=== PATIENT | female | born 1940 | race Caucasian/White ===

== ENCOUNTER → 2016-11-04 | Outpatient (CLI) | payer OTHER, MEDICARE ==
--- NOTE | 2016-11-04 16:15 | MAMMOGRAPHY REPORT ---
UNILATERAL RIGHT DIGITAL SCREENING MAMMOGRAM TOMOSYNTHESIS WITH CAD: 11/04/2016 CLINICAL HISTORY: Asymptomatic. Personal history of breast cancer. TECHNIQUE: Right breast tomosynthesis in addition to standard 2D mammography was performed. Current study was also evaluated with a Computer Aided Detection (CAD) system. COMPARISON: Comparison is made to exams dated: 12/03/2015 mammogram, 11/12/2015 mammogram, 11/04/2015 ma mmogram, 10/29/2014 mammogram, 10/24/2013 mammogram, and 10/23/2012 mammogram - [facility]. BREAST COMPOSITION: There are scattered areas of fibroglandular density in the right breast. FINDINGS: There are mild vascular calcifications in the right breast. No new suspicious mass, joe ectural distortion or cluster of microcalcifications is seen. IMPRESSION: ACR BI-RADS CATEGORY 1: NEGATIVE There is no mammographic evidence of malignancy. A 1 year screening mammogram is recommended. The pa tient will receive written notification of the results. Approximately 10% of breast cancers are not detected with mammography. A negative mammographic report should not delay biopsy if a clinically suggestive mass is present. Barb Powers M.D. ay/:11/04/2016 15:55:09 Pony Trimmer: Lucero ROBLEDO(Kwaku)(Polina)([place]), [facility] letter sent: Normal 1/2 BI-RADS Code: ACR BI-RADS Category 1: Negative
== END | disposition home or self-care (01) ==
LOC: C.MAMM 09:54
PROVIDERS: ATTEND Family Medicine
DX: Z12.31 Encounter for screening mammogram for malignant neoplasm of breast (principal); Z85.3 Personal history of malignant neoplasm of breast

== ENCOUNTER 2018-11-01 13:03 | Observation (INO) ==
--- NOTE | 2018-11-01 13:33 | XRay Report ---
XR chest 1V portable CLINICAL HISTORY: chest pain pain COMPARISON STUDY: No previous studies for comparison. FINDINGS: The bones soft tissues and hemidiaphragms are normal. The cardiomediastinal silhouette is n ormal. The lungs are clear. The pulmonary vasculature is normal. IMPRESSION: Negative chest. The above report was generated using voice recognition software. It may contain grammatical, syntax or spelling errors. Electronically signed by: Anatoliy Macias M.D. 11/01/2018 1:32 PM
[2018-11-01 13:54] LABS: Basophils # (auto) 0.02 K/uL (0-0.2); Basophils % (auto) 0.2 %; Eosinophils # (auto) 0.03 K/uL (0-0.5); Eosinophils % (auto) 0.4 %; Hematocrit (blood only) 39.7 % (37-47); Hemoglobin 13.7 g/dL (12.0-16.0); Immature Granulocytes # (auto) 0.01 K/uL (0.00-0.02); Immature Granulocytes % (auto) 0.1 %; Lymphocytes # (auto) 0.73 K/uL (1.2-3.4); Lymphocytes % (auto) 8.7 %; Mean Corpuscular Hgb Conc 34.5 g/dL (32-36); Mean Corpuscular Volume 94.3 fL (80-100); Mean Platelet Volume 10.7 fL (7.4-10.4); Monocytes # (auto) 0.39 K/uL (0.11-0.59); Monocytes % (auto) 4.7 %; Neutrophils % (auto) 85.9 %; Platelet Count 221 K/uL (130-400); RDW Coefficient of Variation 13.6 % (11.5-14.5); Red Blood Count 4.21 M/uL (4.2-5.4); White Blood Count 8.38 K/uL (4.8-10.8)
[2018-11-01 14:11] LABS: D Dimer 1000 ug/L FEU (0-500)
[2018-11-01 14:57] LABS: Alanine Aminotransferase 66 U/L (12-78); Albumin Globulin Ratio 0.9 (0.9-2); Albumin Level 3.2 gm/dl (3.4-5.0); Alkaline Phosphatase 105 U/L (45-117); BUN Creatinine Ratio 13.1 (10-20); Bilirubin,Total 0.4 mg/dl (0.2-1); Blood Urea Nitrogen 16 mg/dl (7-18); Calcium 8.9 mg/dl (8.5-10.1); Carbon Dioxide 24 mmol/L (21-32); Chloride 109 mmol/L (98-107); Creatinine Clr Calc Pharmacy 32.7 ml/min; Est GFR (Non-African American) 40.6; Globulin 3.6 gm/dl (2.5-4.0); Glucose 155 mg/dl (70-99); NT Pro B Type Natriuretic Pept 179 pg/ml (0-1800); Sodium 142 mmol/L (136-145); Total Protein 6.8 gm/dl (6.4-8.2); Troponin I < 0.015 ng/ml (0-0.045)
[2018-11-01] MEDS ORDERED: OPTIRAY 320 125ml IV PRN (15:49)
[2018-11-01] MEDS ORDERED: FAMOTIDINE 20MG/5ML IV PUSH IV STA (15:51)
[2018-11-01 16:05] LABS: Magnesium 2.4 mg/dl (1.8-2.4)
--- NOTE | 2018-11-01 16:09 | CT Scan Report ---
CHEST CTA for PULMONARY ARTERIES CT DOSE: 258.53 mGy.cm HISTORY: Atypical chest pain. TECHNIQUE: Multiaxial CT images of the chest were performed following the intravenous administration of contrast to evaluate the pulmonary arteries. Maximal intensity projection images were also obtaine d. A dose lowering technique was utilized adhering to the principles of ALARA. COMPARISON STUDY: None. FINDINGS: No evidence for an aortic dissection or pulmonary embolus. Normal esophagus. The visualized liver, spleen, and adrenal glands are unremarkable. No pleural or pericardial effusions. The heart i s normal in size. No mediastinal or hilar lymphadenopathy. Bilateral breast augmentation is noted. No suspicious lytic or last exam see the lesions. No pneumothorax. The central airways are patent. A 5 mm nodule within the left upper lobe on image 156. No focal lung consolidations to suggest pneumonia. IMPRESSION: 1. No evidence for pulmonary embolus. 2. A 5 mm nodule within the left upper lobe. Please refer to the chart below for recommended follow-u p. Please refer to below summary of Fleischner criteria recommendations for follow-up of incidental CT n odules (Ritesh Jack, Guidelines for management of small pulmonary nodules detected on CT scans: A sta tement from the Fleischner Society, Radiology 237: [phone].) SOLID NODULES Solitary nodule size: <6 mm * Low risk patients: no follow-up needed * high risk patients: optional CT at 12 months Solitary nodule size: 6-8 mm * Low risk patients: follow-up at 6-12 months, then consider further follow-up at 18-24 months * high risk patients: initial follow-up CT at 6-12 months and then at 18-24 months if no change Solitary nodule size: >8 mm * either low or high risk patients - consider follow-up CT at 3 months, and/or CT-PET, and/or biopsy Multiple nodules size: <6 mm * Low risk patients: no routine follow-up * high risk patients: optional CT at 12 months Multiple nodules size: 6-8 mm * Low risk patients: follow-up at 3-6 months, then consider further follow-up at 18-24 months * high risk patients: follow-up at 3-6 months, then at 18-24 months if no change Multiple nodules size: >8 mm * Low risk patients: follow-up at 3-6 months, then consider further follow-up at 18-24 months * high risk patients: follow-up at 3-6 months, then at 18-24 months if no change Note: newly detected indeterminate nodule in persons 35 years of age or older. * Low risk patients: minimal or absent history of smoking and/or other known risk factors * high risk patients: history of smoking or of other known risk factors (e.g. first degree relative with lung cancer, or exposure to asbestos, radon, uranium) * if a nodule up to 8 mm is partly solid or is ground glass further follow-up is required after 24 m onths to exclude possible slow growing adenocarcinoma (IRINEO) SUBSOLID NODULES Solitary pure ground-glass nodule * nodule size <6 mm - no CT follow-up required * nodule size >=6 mm - follow-up CT at 6-12 months, then every 2 years until 5 years Solitary part-solid nodule * nodule size <6 mm - no CT follow-up required * nodule size >=6 mm - follow-up CT at 3-6 months. If unchanged, and solid component remains <6 mm, then annual follow-up for 5 years Multiple subsolid nodules * nodule size <6 mm - follow-up CT at 3-6 months, consider further follow-up at 2 and 4 years if sta ble * nodule size >=6 mm - follow-up CT at 3-6 months, subsequent management based on the most suspiciou s nodule(s) Electronically signed by: Kodak Peralta M.D. 11/01/2018 4:08 PM
--- NOTE | 2018-11-01 17:47 | Emergency Department Note ---
Entered by Tamie Chong acting as a scribe for Candcie Viera DO History of Present Illness General Chief complaint: Chest Pain Time Seen by Provider: 11/01/18 13:05 Source: patient Mode of arrival: ambulatory Limitations: no limitations History of Present Illness Onset (ago): hour(s) (a few) Location: chest Radiation: non-radiation Pain Consistency: + now resolved Relieved By: + other (Aspirin and Nitroglycerin) Associated symptoms: + diaphoresis, + shortness of breath and + other (numbness in her hands and feet) Treatments prior to arrival: other (Aspirin and Nitroglycerin) The patient is an 78 year old female who presents to the ED complaining of now- resolved chest pain that began a few hours ago. She states that she experienced what she believed to be indigestion around 10:15 this morning when she was driving, and she sat down in her recliner once she got home. She notes that the symptoms were across her chest and in her upper abdomen. The patient complains of numbness in her hands and feet, diaphoresis, new chest pain, and SOB that occurred after she sat down. States this began to resolve by the time EMS arri rafi however she still had chest pain. She states that she received 1 nitroglycerin and 4 Aspirin SCARFER, and this resolved her symptoms. The patient denies any radiation to her back, arms, neck, and jaw. She notes a history of hypertension. The patient states that she does not smoke cigarettes, but she did for 3 years. No recent illness, no change in activity. No recent symptoms noted during any exertion. Patient states she does have indigestion intermittently, however this felt worse than what she is previously experienced. Home Medications Home Medications Medication Instructions Recorded Confirmed Type alfalfa 250 mg PO DAILY 11/01/18 11/01/18 History beta carotene 10,000 unit PO DAILY 11/01/18 11/01/18 History calcium carbonate [Calcium 500] 500 mg PO DAILY 11/01/18 11/01/18 History cholecalciferol (vitamin D3) 1,000 unit PO DAILY 11/01/18 11/01/18 History [Vitamin D3] lecithin 1,200 mg PO DAILY 11/01/18 11/01/18 History losartan 25 mg PO QAM 11/01/18 11/01/18 History pantoprazole 40 mg PO BID 30 Days #60 tab 11/02/18 Rx Allergies Allergy/AdvReac Type Severity Reaction Status Date / Time No Known Allergies Allergy Unverified 11/01/18 13:21 Past Med/Surg History Medical History Breast cancer (Chronic) GERD (gastroesophageal reflux disease) (Chronic) HTN (hypertension) (Chronic) Dyslipidemia (Chronic) Hypertension Surgical History History of cataract surgery (Chronic) Hx of tonsillectomy (Chronic) History of left mastectomy (Chronic) H/O mastectomy Family History Other Colorectal cancer Diabetes Hypertension Social History Preferred Language: Iraqi Communication Ability: Effective Beliefs That Will Affect Care: None Current Living Situation: Spouse Other Information That Helps Us Care for You: No Feels Safe at Home: Yes Safety Concerns: Feels Safe At This Time Smoking Status: Former smoker Smoking End Date: 50 years ago Second Hand Exposure: No Hx Alcohol Use: Yes Alcohol type: beer Hx Substance Use: No Review of Systems See HPI for pertinent positives & negatives. and A total of 10 systems reviewed and were otherwise negative Physical Exam Vital Signs Vital Signs - 24 hr 11/01/18 13:09 11/01/18 13:11 11/01/18 13:20 Temperature Temperature Source Sepsis Recent Fever Within 48 Hours Sepsis New/Unexplained Change in Mental Status Sepsis Action Taken by Nursing Pulse Rate 70 87 69 Pulse Rate [Apical] Pulse Rate [Exercises] Pulse Rate from SpO2 Sensor 78 74 65 Pulse Rhythm Pulse Rhythm [Apical] Pulse Strength Pulse Strength [Apical] Respiratory Rate 17 21 23 Respiratory Rate [Exercises] Respiratory Effort / Characteristics Respiratory Depth Respiratory Pattern Blood Pressure 147/79 H Blood Pressure [Right Arm] Blood Pressure Mean 101 Blood Pressure Mean [Right Arm] Blood Pressure Position Blood Pressure Position [Right Arm] Pulse Oximetry 95 94 98 Pulse Oximetry [Exercises] Oxygen Delivery Method 11/01/18 13:27 11/01/18 13:30 11/01/18 13:34 Temperature 97.9 F Temperature Source Oral Sepsis Recent Fever Within 48 Hours No Sepsis New/Unexplained Change in Mental Status No Sepsis Action Taken by Nursing No Action Required Pulse Rate 63 70 Pulse Rate [Apical] Pulse Rate [Exercises] Pulse Rate from SpO2 Sensor 69 Pulse Rhythm Regular Pulse Rhythm [Apical] Pulse Strength Normal Pulse Strength [Apical] Respiratory Rate 18 23 Respiratory Rate [Exercises] Respiratory Effort / Characteristics Non-Labored Spontaneous Respiratory Depth Normal Respiratory Pattern Regular Blood Pressure 147/79 H 151/90 H Blood Pressure [Right Arm] Blood Pressure Mean 101 110 Blood Pressure Mean [Right Arm] Blood Pressure Position Sitting Blood Pressure Position [Right Arm] Pulse Oximetry 97 92 97 Pulse Oximetry [Exercises] Oxygen Delivery Method Room Air Room Air 11/01/18 13:40 11/01/18 13:50 11/01/18 14:00 Temperature Temperature Source Sepsis Recent Fever Within 48 Hours Sepsis New/Unexplained Change in Mental Status Sepsis Action Taken by Nursing Pulse Rate 76 76 73 Pulse Rate [Apical] Pulse Rate [Exercises] Pulse Rate from SpO2 Sensor 79 Pulse Rhythm Pulse Rhythm [Apical] Pulse Strength Pulse Strength [Apical] Respiratory Rate 16 25 H 17 Respiratory Rate [Exercises] Respiratory Effort / Characteristics Respiratory Depth Respiratory Pattern Blood Pressure 147/92 H Blood Pressure [Right Arm] Blood Pressure Mean 110 Blood Pressure Mean [Right Arm] Blood Pressure Position Blood Pressure Position [Right Arm] Pulse Oximetry 94 Pulse Oximetry [Exercises] Oxygen Delivery Method 11/01/18 14:10 11/01/18 14:20 11/01/18 14:29 Temperature Temperature Source Sepsis Recent Fever Within 48 Hours Sepsis New/Unexplained Change in Mental Status Sepsis Action Taken by Nursing Pulse Rate 72 68 Pulse Rate [Apical] 80 Pulse Rate [Exercises] Pulse Rate from SpO2 Sensor Pulse Rhythm Pulse Rhythm [Apical] Regular Pulse Strength Pulse Strength [Apical] Normal Respiratory Rate 19 18 18 Respiratory Rate [Exercises] Respiratory Effort / Characteristics Non-Labored Respiratory Depth Normal Respiratory Pattern Regular Blood Pressure Blood Pressure [Right Arm] 147/92 H Blood Pressure Mean Blood Pressure Mean [Right Arm] 110 Blood Pressure Position Blood Pressure Position [Right Arm] Sitting Pulse Oximetry 96 Pulse Oximetry [Exercises] Oxygen Delivery Method Room Air 11/01/18 14:30 11/01/18 14:40 11/01/18 14:50 Temperature Temperature Source Sepsis Recent Fever Within 48 Hours Sepsis New/Unexplained Change in Mental Status Sepsis Action Taken by Nursing Pulse Rate 71 74 76 Pulse Rate [Apical] Pulse Rate [Exercises] Pulse Rate from SpO2 Sensor 72 75 71 Pulse Rhythm Pulse Rhythm [Apical] Pulse Strength Pulse Strength [Apical] Respiratory Rate 20 19 15 Respiratory Rate [Exercises] Respiratory Effort / Characteristics Respiratory Depth Respiratory Pattern Blood Pressure 160/91 H Blood Pressure [Right Arm] Blood Pressure Mean 114 Blood Pressure Mean [Right Arm] Blood Pressure Position Blood Pressure Position [Right Arm] Pulse Oximetry 94 95 96 Pulse Oximetry [Exercises] Oxygen Delivery Method 11/01/18 15:00 11/01/18 15:10 11/01/18 15:20 Temperature Temperature Source Sepsis Recent Fever Within 48 Hours Sepsis New/Unexplained Change in Mental Status Sepsis Action Taken by Nursing Pulse Rate 76 78 80 Pulse Rate [Apical] Pulse Rate [Exercises] Pulse Rate from SpO2 Sensor 78 76 74 Pulse Rhythm Pulse Rhythm [Apical] Pulse Strength Pulse Strength [Apical] Respiratory Rate 25 H 19 21 Respiratory Rate [Exercises] Respiratory Effort / Characteristics Respiratory Depth Respiratory Pattern Blood Pressure 166/104 H Blood Pressure [Right Arm] Blood Pressure Mean 124 Blood Pressure Mean [Right Arm] Blood Pressure Position Blood Pressure Position [Right Arm] Pulse Oximetry 96 93 95 Pulse Oximetry [Exercises] Oxygen Delivery Method 11/01/18 15:30 11/01/18 15:40 11/01/18 15:58 Temperature Temperature Source Sepsis Recent Fever Within 48 Hours Sepsis New/Unexplained Change in Mental Status Sepsis Action Taken by Nursing Pulse Rate 65 85 104 H Pulse Rate [Apical] Pulse Rate [Exercises] Pulse Rate from SpO2 Sensor 63 84 Pulse Rhythm Pulse Rhythm [Apical] Pulse Strength Pulse Strength [Apical] Respiratory Rate 18 19 18 Respiratory Rate [Exercises] Respiratory Effort / Characteristics Respiratory Depth Respiratory Pattern Blood Pressure Blood Pressure [Right Arm] Blood Pressure Mean Blood Pressure Mean [Right Arm] Blood Pressure Position Blood Pressure Position [Right Arm] Pulse Oximetry 97 93 Pulse Oximetry [Exercises] Oxygen Delivery Method 11/01/18 15:59 11/01/18 16:00 11/01/18 16:10 Temperature Temperature Source Sepsis Recent Fever Within 48 Hours Sepsis New/Unexplained Change in Mental Status Sepsis Action Taken by Nursing Pulse Rate 91 H 85 82 Pulse Rate [Apical] Pulse Rate [Exercises] Pulse Rate from SpO2 Sensor 86 91 H 84 Pulse Rhythm Pulse Rhythm [Apical] Pulse Strength Pulse Strength [Apical] Respiratory Rate 17 17 17 Respiratory Rate [Exercises] Respiratory Effort / Characteristics Respiratory Depth Respiratory Pattern Blood Pressure 152/97 H 161/97 H Blood Pressure [Right Arm] Blood Pressure Mean 115 118 Blood Pressure Mean [Right Arm] Blood Pressure Position Blood Pressure Position [Right Arm] Pulse Oximetry 96 94 96 Pulse Oximetry [Exercises] Oxygen Delivery Method 11/01/18 16:20 11/01/18 16:21 11/01/18 16:30 Temperature Temperature Source Sepsis Recent Fever Within 48 Hours Sepsis New/Unexplained Change in Mental Status Sepsis Action Taken by Nursing Pulse Rate 85 81 Pulse Rate [Apical] 80 Pulse Rate [Exercises] Pulse Rate from SpO2 Sensor 85 80 Pulse Rhythm Pulse Rhythm [Apical] Pulse Strength Pulse Strength [Apical] Respiratory Rate 18 23 20 Respiratory Rate [Exercises] Respiratory Effort / Characteristics Respiratory Depth Respiratory Pattern Blood Pressure 152/88 H Blood Pressure [Right Arm] 161/97 H Blood Pressure Mean 109 Blood Pressure Mean [Right Arm] 118 Blood Pressure Position Blood Pressure Position [Right Arm] Pulse Oximetry 95 94 95 Pulse Oximetry [Exercises] Oxygen Delivery Method Room Air 11/01/18 16:40 11/01/18 17:00 11/01/18 17:10 Temperature Temperature Source Sepsis Recent Fever Within 48 Hours Sepsis New/Unexplained Change in Mental Status Sepsis Action Taken by Nursing Pulse Rate 83 77 79 Pulse Rate [Apical] Pulse Rate [Exercises] Pulse Rate from SpO2 Sensor 81 79 Pulse Rhythm Pulse Rhythm [Apical] Pulse Strength Pulse Strength [Apical] Respiratory Rate 25 H 30 H 23 Respiratory Rate [Exercises] Respiratory Effort / Characteristics Respiratory Depth Respiratory Pattern Blood Pressure Blood Pressure [Right Arm] Blood Pressure Mean Blood Pressure Mean [Right Arm] Blood Pressure Position Blood Pressure Position [Right Arm] Pulse Oximetry 94 93 Pulse Oximetry [Exercises] Oxygen Delivery Method 11/01/18 17:20 11/01/18 17:30 11/01/18 17:38 Temperature Temperature Source Sepsis Recent Fever Within 48 Hours Sepsis New/Unexplained Change in Mental Status Sepsis Action Taken by Nursing Pulse Rate 73 75 Pulse Rate [Apical] Pulse Rate [Exercises] 87 Pulse Rate from SpO2 Sensor 72 74 Pulse Rhythm Pulse Rhythm [Apical] Pulse Strength Pulse Strength [Apical] Respiratory Rate 21 20 Respiratory Rate [Exercises] 20 Respiratory Effort / Characteristics Respiratory Depth Respiratory Pattern Blood Pressure 168/92 H Blood Pressure [Right Arm] Blood Pressure Mean 117 Blood Pressure Mean [Right Arm] Blood Pressure Position Blood Pressure Position [Right Arm] Pulse Oximetry 92 94 Pulse Oximetry [Exercises] 96 Oxygen Delivery Method Room Air 11/01/18 18:05 11/01/18 18:07 11/01/18 18:08 Temperature Temperature Source Sepsis Recent Fever Within 48 Hours Sepsis New/Unexplained Change in Mental Status Sepsis Action Taken by Nursing Pulse Rate 75 66 Pulse Rate [Apical] 73 Pulse Rate [Exercises] Pulse Rate from SpO2 Sensor 72 70 Pulse Rhythm Pulse Rhythm [Apical] Pulse Strength Pulse Strength [Apical] Respiratory Rate 19 23 18 Respiratory Rate [Exercises] Respiratory Effort / Characteristics Respiratory Depth Respiratory Pattern Blood Pressure 197/91 H Blood Pressure [Right Arm] 197/91 H Blood Pressure Mean 126 Blood Pressure Mean [Right Arm] 126 Blood Pressure Position Blood Pressure Position [Right Arm] Pulse Oximetry 92 94 91 Pulse Oximetry [Exercises] Oxygen Delivery Method Room Air 11/01/18 18:10 11/01/18 18:20 11/01/18 18:30 Temperature Temperature Source Sepsis Recent Fever Within 48 Hours Sepsis New/Unexplained Change in Mental Status Sepsis Action Taken by Nursing Pulse Rate 73 74 72 Pulse Rate [Apical] Pulse Rate [Exercises] Pulse Rate from SpO2 Sensor 74 74 73 Pulse Rhythm Pulse Rhythm [Apical] Pulse Strength Pulse Strength [Apical] Respiratory Rate 23 23 16 Respiratory Rate [Exercises] Respiratory Effort / Characteristics Respiratory Depth Respiratory Pattern Blood Pressure Blood Pressure [Right Arm] Blood Pressure Mean Blood Pressure Mean [Right Arm] Blood Pressure Position Blood Pressure Position [Right Arm] Pulse Oximetry 96 95 91 Pulse Oximetry [Exercises] Oxygen Delivery Method 11/01/18 18:31 11/01/18 18:38 11/01/18 18:40 Temperature Temperature Source Sepsis Recent Fever Within 48 Hours Sepsis New/Unexplained Change in Mental Status Sepsis Action Taken by Nursing Pulse Rate 70 74 78 Pulse Rate [Apical] Pulse Rate [Exercises] Pulse Rate from SpO2 Sensor 70 75 74 Pulse Rhythm Pulse Rhythm [Apical] Pulse Strength Pulse Strength [Apical] Respiratory Rate 26 H 23 22 Respiratory Rate [Exercises] Respiratory Effort / Characteristics Respiratory Depth Respiratory Pattern Blood Pressure 193/123 H 167/99 H Blood Pressure [Right Arm] Blood Pressure Mean 146 121 Blood Pressure Mean [Right Arm] Blood Pressure Position Blood Pressure Position [Right Arm] Pulse Oximetry 97 95 96 Pulse Oximetry [Exercises] Oxygen Delivery Method GENERAL: alert, well appearing, well nourished, no distress, non-toxic EYE EXAM: normal conjunctiva, PERRL and EOM's grossly intact OROPHARYNX: no exudate, no erythema, lips, buccal mucosa, and tongue normal and mucous membranes are moist NECK: supple, no nuchal rigidity, no adenopathy, non-tender LUNGS: Clear to auscultation. Normal chest wall mechanics. No reproducible chest wall tenderness. Prior left mastectomy. No w/r/r HEART: no murmurs, S1 normal and S2 normal ABDOMEN: abdomen soft, non-tender, normo-active bowel sounds, no masses, no rebound or guarding. BACK: Back is symmetrical on inspection and there is no deformity, no midline tenderness, no CVA tenderness. SKIN: no rashes and no bruising UPPER EXTREMITIES: upper extremities are grossly normal. from, nml pulses b/l. LOWER EXTREMITIES: No pitting edema. FROM, nml pulses b/l. NEURO EXAM: Normal sensorium, cranial nerves II-XII grossly intact, normal speech, no gross weakness of arms, no gross weakness of legs. Course 1309: The patient was evaluated in room B11B. A complete history and physical exam was performed. 1620: I reassessed the patient. She reported that she has no current pain. We discussed her options, and she doesn't want to be admitted. She is agreeable with the plan to recheck her troponin. 1740: I updated patient on results and again discussed disposition. I informed her I am concerned about the presentation today given that she has never had any prior cardiac testing and this was different than her usual indigestion. No evidence of perforation and I do not suspect active GI bleed. Patient has 2- troponins however has a heart score of 4. With additional discussion at bedside including with multiple family members, patient agreeable with plan for additional inpatient evaluation. 1803: I spoke with Stefanie Levine PA-C, about the patient's case. The patient will be further evaluated by Stefanie and Dr. Zhang, [facility]. Consultations Consultation #1: I spoke with Stefanie Levine PA-C, about the patient's case. The patient will be further evaluated by Stefanie and Dr. Zhang, [facility]. Time: 18:03 Administered Medications Discontinued Medications Amlodipine Besylate (Norvasc) 2.5 mg PO NOW ONE Stop: 11/01/18 19:38 Last Admin: 11/01/18 20:39 Dose: 2.5 mg Documented by: [id number] Amlodipine Besylate (Norvasc) 2.5 mg PO [facility] Stop: 11/02/18 09:01 Last Admin: 11/02/18 07:55 Dose: 2.5 mg Documented by: [id number] Aspirin ([facility]rin Ectab) [facility] Stop: 12/02/18 08:59 Last Admin: 11/02/18 07:55 Dose: 81 mg Documented by: [id number] Atropine Sulfate (Atropine Sulfate) Confirm Administered Dose 1 mg IV .[facility] Stop: 11/02/18 08:38 Last Admin: 11/02/18 11:38 Dose: Not Given Documented by: [id number] Dobutamine HCl (Dobutrex) Confirm Administered Dose 250 mg IV .[facility] ONE Stop: 11/02/18 08:37 Last Admin: 11/02/18 11:37 Dose: 1 dose Documented by: [id number] Famotidine (Pepcid 20mg Iv Push) 20 mg IV ONE STA Stop: 11/01/18 15:52 Last Admin: 11/01/18 16:18 Dose: 20 mg Documented by: [id number] Heparin Sodium (Porcine) (Heparin Sodium (Porcine)) 5,000 units SQ Q8 [facility] Stop: 12/01/18 21:59 Last Admin: 11/02/18 14:25 Dose: Not Given Documented by: [id number] Admin: 11/02/18 06:16 Dose: 5,000 units Documented by: [id number] Cosigned by: [id number] Admin: 11/01/18 21:25 Dose: Not Given Documented by: [id number] Ioversol (Optiray 320 125ml) 119 ml IV ONCE PRN PRN Reason: Interaction Checking Stop: 11/05/18 15:48 Last Admin: 11/01/18 15:51 Dose: 119 ml Documented by: [id number] Losartan Potassium (Cozaar) 25 mg PO QAM [facility] Stop: 12/02/18 08:59 Last Admin: 11/02/18 07:55 Dose: 25 mg Documented by: [id number] Metoprolol Tartrate (Lopressor) Confirm Administered Dose 10 mg IV .[facility] ONE Stop: 11/02/18 08:37 Last Admin: 11/02/18 11:38 Dose: 5 mg Documented by: [id number] Pantoprazole Sodium (Protonix) 40 mg PO DAILYBB [facility] Stop: 12/02/18 06:29 Last Admin: 11/02/18 06:16 Dose: 40 mg Documented by: [id number] Perflutren Lipid Microsphere (Definity) 1.5 ml IV ONCE ONE Stop: 11/02/18 11:40 Last Admin: 11/02/18 11:40 Dose: 2 ml Documented by: [id number] Medical Decision Making Differential Diagnosis Etiologies such as shingles, musculoskeletal pain, pericarditis, myocarditis, cardiac ischemia, pericardial tamponade, pneumonia, pneumothorax, pleural effusion, hemothorax, pleurisy, aortic pathology, pulmonary embolism, intra- abdominal process, as well as others were considered. Medical Records Attestation: I reviewed the patient's medical records. Home Medications Current Medication List: was personally reviewed by me Laboratory Data Attestation: I reviewed the patient's lab results. Result diagrams: 11/02/18 04:13 11/02/18 04:13 Lab Results 11/01/18 11/01/18 11/01/18 Range/Units 13:43 13:43 13:43 WBC 8.38 (4.8-10.8) K/uL RBC 4.21 (4.2-5.4) M/uL Hgb 13.7 (12.0-16.0) g/dL Hct 39.7 (37-47) % MCV 94.3 (80-100) fL MCH 32.5 (25-34) pg MCHC 34.5 (32-36) g/dL RDW Std Deviation 47.0 H (36.4-46.3) fL RDW Coeff of Adalberto 13.6 (11.5-14.5) % Plt Count 221 (130-400) K/uL MPV 10.7 H (7.4-10.4) fL Immature Gran % (Auto) 0.1 % Neut % (Auto) 85.9 % Lymph % (Auto) 8.7 % Labette % (Auto) 4.7 % Eos % (Auto) 0.4 % Baso % (Auto) 0.2 % Immature Gran # (Auto) 0.01 (0.00-0.02) K/uL Neut # (Auto) 7.20 H (1.4-6.5) K/uL Lymph # (Auto) 0.73 L (1.2-3.4) K/uL Labette # (Auto) 0.39 (0.11-0.59) K/uL Eos # (Auto) 0.03 (0-0.5) K/uL Baso # (Auto) 0.02 (0-0.2) K/uL D-Dimer 1000 H* (0-500) ug/L FEU Sodium 142 (136-145) mmol/L Potassium (3.5-5.1) mmol/L Chloride 109 H (98-107) mmol/L Carbon Dioxide 24 (21-32) mmol/L Anion Gap 9.0 (3-11) BUN 16 (7-18) mg/dl Creatinine 1.25 H (0.6-1.2) mg/dl Est Cr Clr Drug Dosing 32.7 ml/min Est GFR ( Amer) 47.0 Est GFR (Non-Af Amer) 40.6 BUN/Creatinine Ratio 13.1 (10-20) Glucose 155 H (70-99) mg/dl Calcium 8.9 (8.5-10.1) mg/dl Magnesium (1.8-2.4) mg/dl Total Bilirubin 0.4 (0.2-1) mg/dl AST (15-37) U/L ALT 66 (12-78) U/L Alkaline Phosphatase 105 (45-117) U/L Troponin I < 0.015 (0-0.045) ng/ml NT-Pro-B Natriuret Pep 179 (0-1800) pg/ml Total Protein 6.8 (6.4-8.2) gm/dl Albumin 3.2 L (3.4-5.0) gm/dl Globulin 3.6 (2.5-4.0) gm/dl Albumin/Globulin Ratio 0.9 (0.9-2) Lipase 114 (73-393) U/L TSH 2.170 (0.300-4.500) uIu/ml 11/01/18 11/01/18 11/01/18 Range/Units 15:20 15:40 16:53 WBC (4.8-10.8) K/uL RBC (4.2-5.4) M/uL Hgb (12.0-16.0) g/dL Hct (37-47) % MCV (80-100) fL MCH (25-34) pg MCHC (32-36) g/dL RDW Std Deviation (36.4-46.3) fL RDW Coeff of Adalberto (11.5-14.5) % Plt Count (130-400) K/uL MPV (7.4-10.4) fL Immature Gran % (Auto) % Neut % (Auto) % Lymph % (Auto) % Labette % (Auto) % Eos % (Auto) % Baso % (Auto) % Immature Gran # (Auto) (0.00-0.02) K/uL Neut # (Auto) (1.4-6.5) K/uL Lymph # (Auto) (1.2-3.4) K/uL Labette # (Auto) (0.11-0.59) K/uL Eos # (Auto) (0-0.5) K/uL Baso # (Auto) (0-0.2) K/uL D-Dimer (0-500) ug/L FEU Sodium (136-145) mmol/L Potassium Cancelled 4.0 (3.5-5.1) mmol/L Chloride (98-107) mmol/L Carbon Dioxide (21-32) mmol/L Anion Gap (3-11) BUN (7-18) mg/dl Creatinine (0.6-1.2) mg/dl Est Cr Clr Drug Dosing ml/min Est GFR ( Amer) Est GFR (Non-Af Amer) BUN/Creatinine Ratio (10-20) Glucose (70-99) mg/dl Calcium (8.5-10.1) mg/dl Magnesium 2.4 (1.8-2.4) mg/dl Total Bilirubin (0.2-1) mg/dl AST 128 H (15-37) U/L ALT (12-78) U/L Alkaline Phosphatase (45-117) U/L Troponin I < 0.015 (0-0.045) ng/ml NT-Pro-B Natriuret Pep (0-1800) pg/ml Total Protein (6.4-8.2) gm/dl Albumin (3.4-5.0) gm/dl Globulin (2.5-4.0) gm/dl Albumin/Globulin Ratio (0.9-2) Lipase (73-393) U/L TSH (0.300-4.500) uIu/ml Imaging Data Radiologist's Impression: Radiology results as stated below per my review and the radiologist's interpretation: XR chest 1V portable CLINICAL HISTORY: chest pain pain COMPARISON STUDY: No previous studies for comparison. FINDINGS: The bones soft tissues and hemidiaphragms are normal. The cardiomediastinal silhouette is normal. The lungs are clear. The pulmonary vasculature is normal. IMPRESSION: Negative chest. The above report was generated using voice recognition software. It may contain grammatical, syntax or spelling errors. Electronically signed by: Anatoliy Macias M.D. 11/01/2018 1:32 PM ECG Data Attestation: I personally reviewed and interpreted this ECG as follows: Indication: chest pain Rate (beats per minute): 64 Rhythm: sinus rhythm Findings: + other (normal axis, normal interval); no ST elevation and no ectopy Comparison ECG Date: from (05/05/2017) Change: no significant change Blood Pressure Blood Pressure Findings: Elevated blood pressure Blood Pressure Disposition: further management by hospitalist MDM Narrative Heart score 4 Patient with concerning presentation given evolution of symptoms which are atypical from what she is previously experienced with indigestion. Patient moderate risk based on heart score. Patient had elevated d-dimer however CT angiography of the chest was reassuring. Other labs reassuring. Patient hemodynamically stable throughout. No recurrence of symptoms while here. Discussed presentation and risks with patient and eventually subsequent family members on several occasions and they were in agreement with plan. Case discussed with hospitalist for additional inpatient management. No evidence of PE, dissection, tamponade, effusion, pneumonia. I do not suspect perforation or GI bleed. Impression & Plan Chest pain, Hypertension, Dyspnea Discharge Plan Visit Data *Final* Discharge Date/Time: 11/01/18 19:31 Chief Complaint: Chest Pain ED Provider: Candice Viera Discharge Problem: Chest pain, Hypertension, Dyspnea Patient Disposition: Admitted As Inpatient Condition: Good Discharge Instructions Interventions: ED Discharge Assessment Last Done: 11/01/18 19:31 Discharge Problem: Chest pain Qualifiers: Chest pain type: unspecified Qualified Code(s): R07.9 - Chest pain, unspecified Hypertension Qualifiers: Hypertension type: unspecified Qualified Code(s): I10 - Essential (primary) hypertension Dyspnea Qualifiers: Dyspnea type: unspecified Qualified Code(s): R06.00 - Dyspnea, unspecified The scribe's documentation has been prepared under my direction and personally reviewed by me in its entirety. I confirm that the note above accurately reflects all work, treatment, procedures, and medical decision making performed by me.
--- NOTE | 2018-11-01 19:05 | History & Physical Report ---
Date of Service November 01, 2018 Assessment & Plan (1) Chest pain: Pt presents with c/o anterior CP with associated diaphoresis and SOB this morning that lasted for several hours, improved with ASA, nitro x 1. Complete resolution in ER. In ER was given pepcid IV. Initial BP in ER 147/79, afebrile, P: 63, R: 18, 92-97% RA. CHEST PAIN R/O ACS. Risk factors: HTN -Monitor Vitals -Repeat EKG in am -Will trend troponin -Echo -lipid panel in am -ASA -Nitro prn CP and repeat EKG for CP (2) HTN (hypertension): In ER BP 147/79, 167/99 -Continue losartan -Monitor BP, may need to add additional agents (3) GERD (gastroesophageal reflux disease): -Continue PPI (4) Breast cancer: H/O L breast cancer s/p mastectomy DVT Prophylaxis -Heparin SQ Full Code as per discussion with pt Follows with Dr Norris for routine care Pt was seen with Dr Zhang. See addendum History of Present Illness Chief Complaint: CP Primary Care Provider: Glenny Norris, DO Pt is 78 y/o F with PMH HTN, dyslipidemia, GERD, CKD III, h/o L breast cancer s/p mastectomy presented to ER with c/o CP today. Pt states was working in her kitchen this morning when she started with epigastric discomfort which radiated to anterior chest described as burning type sensation. Reports shallow breathing when having the pain and diaphoresis. Then developed tingling sensation of bilateral hands and feet. Denies pleuritic CP. Denies arm or neck pain. Pain was persistent for 2 hours then EMS was called and pt received ASA 324mg po and nitro SL x1 with some relief of CP and reports relief of paresthesias and shallow breathing. In ER pt received pepcid IV. Pt reports no further CP while being in ER. Pt is able to complete her ADLs including carrying laundry up and down a flight of stairs without CP or SOB. 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 Pt has been on omeprazole for approx 6-8 weeks for reflux symptoms and reports improvement of symptoms. Denies fever/chills, N/V/D/C, HORN, dizziness, syncope, vision changes, neck pain, orthopnea, palpitations, cough, sore throat, choking, otalgia, rhinorrhea, abdominal pain, weakness, extremity weakness, extremity edema, rashes, urinary symptoms. Allergies Allergy/AdvReac Type Severity Reaction Status Date / Time No Known Allergies Allergy Unverified 11/01/18 13:21 Home Medications Home Medications Medication Instructions Recorded Confirmed Type alfalfa 250 mg PO DAILY 11/01/18 11/01/18 History beta carotene 10,000 unit PO DAILY 11/01/18 11/01/18 History calcium carbonate [Calcium 500] 500 mg PO DAILY 11/01/18 11/01/18 History cholecalciferol (vitamin D3) 1,000 unit PO DAILY 11/01/18 11/01/18 History [Vitamin D3] lecithin 1,200 mg PO DAILY 11/01/18 11/01/18 History losartan 25 mg PO QAM 11/01/18 11/01/18 History omeprazole 20 mg PO DAILYBB 11/01/18 11/01/18 History Past Med/Surg History Medical History Breast cancer (Chronic) GERD (gastroesophageal reflux disease) (Chronic) HTN (hypertension) (Chronic) Dyslipidemia (Chronic) Hypertension Surgical History History of cataract surgery (Chronic) Hx of tonsillectomy (Chronic) History of left mastectomy (Chronic) H/O mastectomy Family History Other Colorectal cancer Diabetes Hypertension Social History Communication Ability: Effective Feels Safe at Home: Yes Smoking Status: Former smoker Smoking End Date: Smoked 0.2ppd x 2 years. Quit 1969 Hx Alcohol Use: Yes Hx Substance Use: No Review of Systems Review of Systems: All systems reviewed & are unremarkable except as noted in HPI & below Physical Exam Physical Exam: General: no distress, obese Head: normocephalic, atraumatic Eyes: PERRL, EOM's intact, conjunctiva non-injected, anicteric ENT: normal inspection external ears, nose, mucous membranes moist Neck: supple, trachea midline Lungs: clear, no respiratory distress, no wheezing/rhonchi/rales CV: RRR, no murmur, no pretibial edema; chest without rashes and non-tender to palpation Abd: normal BS, soft, non-tender Ext: no cyanosis, no calf tenderness Neuro: A&O x 3, no focal deficits noted, normal affect Skin: warm, dry Results & Data Vital Signs (Past 12 Hours) Vital Signs Temp Pulse Pulse Pulse Resp Resp BP 11/01/18 18:54 72 18 11/01/18 18:05 73 19 11/01/18 17:38 87 20 11/01/18 16:21 80 23 11/01/18 15:20 80 21 11/01/18 15:10 78 19 11/01/18 15:00 76 25 H 166/104 H 11/01/18 14:50 76 15 11/01/18 14:40 74 19 11/01/18 14:30 71 20 160/91 H 11/01/18 14:29 80 18 11/01/18 14:20 68 18 11/01/18 14:10 72 19 11/01/18 14:00 73 17 147/92 H 11/01/18 13:50 76 25 H 11/01/18 13:40 76 16 11/01/18 13:34 11/01/18 13:30 70 23 151/90 H 11/01/18 13:27 36.6 C 63 18 147/79 H 11/01/18 13:20 69 23 11/01/18 13:11 87 21 11/01/18 13:09 70 17 147/79 H BP Pulse Ox Pulse Ox 11/01/18 18:54 167/99 H 91 11/01/18 18:05 197/91 H 92 11/01/18 17:38 96 11/01/18 16:21 161/97 H 94 11/01/18 15:20 95 11/01/18 15:10 93 11/01/18 15:00 96 11/01/18 14:50 96 11/01/18 14:40 95 11/01/18 14:30 94 11/01/18 14:29 147/92 H 96 11/01/18 14:20 11/01/18 14:10 11/01/18 14:00 11/01/18 13:50 11/01/18 13:40 94 11/01/18 13:34 97 11/01/18 13:30 92 11/01/18 13:27 97 11/01/18 13:20 98 11/01/18 13:11 94 11/01/18 13:09 95 Laboratory Results Short CBC 11/01/18 Range/Units 13:43 WBC 8.38 (4.8-10.8) K/uL Hgb 13.7 (12.0-16.0) g/dL Hct 39.7 (37-47) % Plt Count 221 (130-400) K/uL BMP 11/01/18 11/01/18 11/01/18 13:43 15:20 15:40 Sodium 142 Potassium Cancelled 4.0 Chloride 109 H Carbon Dioxide 24 BUN 16 Creatinine 1.25 H Glucose 155 H Calcium 8.9 Cardiac Enzymes 11/01/18 11/01/18 Range/Units 13:43 16:53 Troponin I < 0.015 < 0.015 (0-0.045) ng/ml Liver Function 11/01/18 11/01/18 Range/Units 13:43 15:40 Total Bilirubin 0.4 (0.2-1) mg/dl AST 128 H (15-37) U/L ALT 66 (12-78) U/L Alkaline Phosphatase 105 (45-117) U/L Albumin 3.2 L (3.4-5.0) gm/dl Diagnostic Findings CXR: IMPRESSION: Negative chest. CTA CHEST: IMPRESSION: 1. No evidence for pulmonary embolus. 2. A 5 mm nodule within the left upper lobe. Please refer to the chart below for recommended follow-up. ECG Rate (beats per minute): 64 Rhythm: normal sinus Findings: + T-wave inversion (Anterior) Additional Comments: Read by junior media buyer: Normal sinus rhythm Nonspecific T wave abnormality Abnormal ECG No previous ECGs available Confirmed by Jason Eddy ([id number]) on 11/01/2018 3:43:10 PM Supervising Physician Co-Signing Physician Notes Attending addendum The patient was seen and examined in the emergency room Pt is 78 y/o F with PMH HTN, dyslipidemia, GERD, CKD III, h/o L breast cancer s/p mastectomy presented to ER with c/o CP today She started to have pain around 10:30 AM, precordial and associated with some shortness of breath and tingling involving extremities, the pain lasted for about 2 hours She has been complaining of reflux symptoms recently No history of overexertion before the pain. Pain relieved with sublingual nitro and aspirin On examination No apparent distress at rest Hemodynamically stable Chest-clear to auscultate bilaterally Heart-S1-S2, regular Abdomen-benign, nontender, bowel sounds present Extremities-negative Admission labs, EKG and imaging studies reviewed Has normal specific ST-T wave changes especially aVF and V1 to 3 Doubt any ACS-we will get serial cardiac enzymes The patient cannot walk on a treadmill so will ask for dobutamine stress echo if ruled out tomorrow morning Agree with assessment and plan as outlined above by LAITH Barry Dr
[2018-11-01] MEDS ORDERED: AMLODIPINE BESYLATE 5 MG TAB PO ONE (19:37)
[2018-11-01] MEDS ORDERED: NITROGLYCERIN SL 0.4 MG/TAB TAB SL PRN (19:59)
[2018-11-01] MEDS ORDERED: ACETAMINOPHEN 325 MG TAB PO PRN (19:59)
[2018-11-01] MEDS: HEPARIN SOD 5,000 UNIT/0.5 ML VIAL SQ SCH (21:25)
[2018-11-02 04:32] LABS: Hematocrit (blood only) 40.5 % (37-47); Hemoglobin 14.1 g/dL (12.0-16.0); Mean Corpuscular Hgb Conc 34.8 g/dL (32-36); Mean Corpuscular Volume 94.2 fL (80-100); Platelet Count 207 K/uL (130-400); RDW Coefficient of Variation 13.5 % (11.5-14.5); RDW Standard Deviation 46.6 fL (36.4-46.3)
[2018-11-02 04:55] LABS: Blood Urea Nitrogen 13 mg/dl (7-18); Calcium 8.5 mg/dl (8.5-10.1); Carbon Dioxide 28 mmol/L (21-32); Chloride 106 mmol/L (98-107); Creatinine Clr Calc Pharmacy 36.7 ml/min; Est GFR (African American) 53.7; Est GFR (Non-African American) 46.4; Glucose 97 mg/dl (70-99); Potassium 3.7 mmol/L (3.5-5.1); Sodium 138 mmol/L (136-145)
[2018-11-02 04:59] LABS: Chol HDL Ratio 2; Cholesterol 168 mg/dl (0-200); HDL Cholesterol 69 mg/dl; LDL Cholesterol Calculated 86 mg/dl; Triglycerides 66 mg/dl (0-150); Troponin I < 0.015 ng/ml (0-0.045); VLDL Cholesterol 13 mg/dl
[2018-11-02 06:10] LABS: Estimated Average Glucose 126 mg/dl
[2018-11-02] MEDS: HEPARIN SOD 5,000 UNIT/0.5 ML VIAL SQ SCH ×2 (06:16→14:25)
[2018-11-02] MEDS ORDERED: PANTOprazole 40 MG TAB PO SCH ×3 (06:30→21:00)
[2018-11-02] MEDS ORDERED: LOSARTAN POTASSIUM 25 MG TAB PO SCH (09:00)
[2018-11-02] MEDS ORDERED: ASPIRIN 81 MG ECTAB PO SCH (09:00)
[2018-11-02] MEDS ORDERED: AMLODIPINE BESYLATE 5 MG TAB PO SCH (09:00)
[2018-11-02] MEDS: METOPROLOL TARTRATE 1 MG/ML VIAL IV ONE ×2 (11:21→11:38)
[2018-11-02] MEDS: DOBUTamine HCL 12.5 MG/ML 20 ML VIAL IV ONE ×2 (11:21→11:37)
[2018-11-02] MEDS: ATROPINE SULFATE 0.1 MG/ML 10ML SYR IV ONE ×2 (11:21→11:38)
[2018-11-02] MEDS ORDERED: PERFLUTREN LIPID MICROSPHERE (DEFINITY) IV ONE (11:39)
--- NOTE | 2018-11-02 15:17 | Hospitalist Progress Note ---
Date of Service November 02, 2018 Assessment & Plan (1) Chest pain: Pt presents with c/o anterior CP with associated diaphoresis and SOB this morning that lasted for several hours, improved with ASA, nitro x 1. Complete resolution in ER. In ER was given pepcid IV. Initial BP in ER 147/79, afebrile, P: 63, R: 18, 92-97% RA. Patient received aspirin and nitro prn Non Cardiac Chest pain Pulmonary nodule -Patient had CTA chest that did not find pulmonary embolism Found to have a pulmonary nodule (5 mm nodule within the left upper lobe) recommendations for solitary nodules are (Solitary nodule size: <6 mm in Low risk patients: no follow-up needed; in high risk patients: optional CT at 12 months) Patient has history of smoking in the past and may be considered high risk Patient to follow up with primary care doctor -On cardiac evaluation; Troponins were negative, no acute events on telemetry; patient had nonischemic dobutamine stress echocardiogram with normal wall motion and EF of 60 to 65% -possible chest discomfort from Gastroesophageal reflux disease (2) HTN (hypertension): -blood pressure was elevated on day of presentation on 11/01/18 -blood pressure controlled by 11/02/18 -Continue home dose losartan (3) GERD (gastroesophageal reflux disease): Patient should take pantoprazole 40 mg twice a day for Gastroesophageal reflux disease Follow up with primary care doctor 11/07/2018 11:00 AM Provider Glenny Norris DO [facility] (4) Breast cancer: H/O L breast cancer s/p mastectomy Discharge Diagnosis non cardiac chest pain, Gastroesophageal reflux disease, pulmonary nodule (a 5 mm nodule within the left upper lobe) Subjective Patient denies having chest discomfort since ED presentation. Patient denies chest pain or shortness of breath after coming back from normal dobutamine stress test. Patient had no acute discomforts after the lunch time. no vomiting. Discussed with patient discharge plans Physical Exam Constitutional: WD/WN, vitals as above Eyes: PERRL, conjunctivae normal, anicteric sclerae EOM intact bilaterally ENMT: external ear and nose normal, oropharynx normal Neck: trachea midline, no thyromegaly Respiratory: normal respiratory effort, lungs clear to auscultation Cardiovascular: RRR, no murmur, no edema Gastrointestinal (Abdomen): normal bowel sounds, soft, nontender, no hepatosplenomegaly Musculoskeletal: no cyanosis or clubbing, extremities motor strength 5/5 Neurologic: PERRL, EOMI, accommodation nl, no face palsy, no dysarthria CN's II-XI intact bilaterally Psychiatric: A+Ox3, euthymic affect Results & Data Vital Signs (Past 12 Hours) Vital Signs Temp Pulse Pulse Resp BP Pulse Ox 11/02/18 15:13 36.9 C 72 91 H 18 129/80 95 11/02/18 12:17 36.9 C 91 H 18 129/80 95 11/02/18 07:53 36.9 C 78 16 158/92 H 94 11/02/18 05:14 37.1 C 65 20 152/91 H 95
--- NOTE | 2018-11-02 15:24 | Discharge Summary ---
Date of Service November 02, 2018 Admission HPI Per Admitting Provider Pt is 78 y/o F with PMH HTN, dyslipidemia, GERD, CKD III, h/o L breast cancer s/p mastectomy presented to ER with c/o CP today. Pt states was working in her kitchen this morning when she started with epigastric discomfort which radiated to anterior chest described as burning type sensation. Reports shallow breathing when having the pain and diaphoresis. Then developed tingling sensation of bilateral hands and feet. Denies pleuritic CP. Denies arm or neck pain. Pain was persistent for 2 hours then EMS was called and pt received ASA 324mg po and nitro SL x1 with some relief of CP and reports relief of paresthesias and shallow breathing. In ER pt received pepcid IV. Pt reports no further CP while being in ER. Pt is able to complete her ADLs including carrying laundry up and down a flight of stairs without CP or SOB. 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 Pt has been on omeprazole for approx 6-8 weeks for reflux symptoms and reports improvement of symptoms. Denies fever/chills, N/V/D/C, HORN, dizziness, syncope, vision changes, neck pain, orthopnea, palpitations, cough, sore throat, choking, otalgia, rhinorrhea, abdominal pain, weakness, extremity weakness, extremity edema, rashes, urinary symptoms. Admission Exam Per Admitting Provider General: no distress, obese Head: normocephalic, atraumatic Eyes: PERRL, EOM's intact, conjunctiva non-injected, anicteric ENT: normal inspection external ears, nose, mucous membranes moist Neck: supple, trachea midline Lungs: clear, no respiratory distress, no wheezing/rhonchi/rales CV: RRR, no murmur, no pretibial edema; chest without rashes and non-tender to palpation Abd: normal BS, soft, non-tender Ext: no cyanosis, no calf tenderness Neuro: A&O x 3, no focal deficits noted, normal affect Skin: warm, dry Principal Diagnosis non cardiac chest pain, Gastroesophageal reflux disease, pulmonary nodule (a 5 mm nodule within the left upper lobe), Hypertension Discharge Exam Constitutional: WD/WN, vitals as above Eyes: PERRL, conjunctivae normal, anicteric sclerae EOM intact bilaterally ENMT: external ear and nose normal, oropharynx normal Neck: trachea midline, no thyromegaly Respiratory: normal respiratory effort, lungs clear to auscultation Cardiovascular: RRR, no murmur, no edema Gastrointestinal (Abdomen): normal bowel sounds, soft, nontender, no hepatosplenomegaly Musculoskeletal: no cyanosis or clubbing, extremities motor strength 5/5 Neurologic: PERRL, EOMI, accommodation nl, no face palsy, no dysarthria CN's II-XI intact bilaterally Psychiatric: A+Ox3, euthymic affect Discharge Data Allergies Allergy/AdvReac Type Severity Reaction Status Date / Time No Known Allergies Allergy Unverified 11/01/18 13:21 Consultations 11/01/18 18:05 ED Decision to Admit Stat Ordered Studies 11/01/18 14:57 CT angio chest PE protocol Stat Hospital Course (1) Chest pain: Pt presents with c/o anterior CP with associated diaphoresis and SOB this morning that lasted for several hours, improved with ASA, nitro x 1. Complete resolution in ER. In ER was given pepcid IV. Initial BP in ER 147/79, afebrile, P: 63, R: 18, 92-97% RA. Patient received aspirin and nitro prn Non Cardiac Chest pain Pulmonary nodule -Patient had CTA chest that did not find pulmonary embolism Found to have a pulmonary nodule (5 mm nodule within the left upper lobe) recommendations for solitary nodules are (Solitary nodule size: <6 mm in Low risk patients: no follow-up needed; in high risk patients: optional CT at 12 months) Patient has history of smoking in the past and may be considered high risk Patient to follow up with primary care doctor -On cardiac evaluation; Troponins were negative, no acute events on telemetry; patient had nonischemic dobutamine stress echocardiogram with normal wall motion and EF of 60 to 65% -possible chest discomfort from Gastroesophageal reflux disease HTN (hypertension): -blood pressure was elevated on day of presentation on 11/01/18 -blood pressure controlled by 11/02/18 -Continue home dose losartan GERD (gastroesophageal reflux disease): Patient should take pantoprazole 40 mg twice a day for Gastroesophageal reflux disease Follow up with primary care doctor 11/07/2018 11:00 AM Provider Glenny Norris, DO Department [facility] History of Breast cancer: H/O L breast cancer s/p mastectomy Total Time Total Time Spent Total Time Spent (In Minutes): 40 minutes Total Time Includes: Examination of the Patient, Discharge Planning, Medication Reconciliation and Communication With Other Providers Discharge Plan Discharge Items Patient Disposition: Home - Self-Care Reason For Visit: CHEST PAIN Discharge Diagnosis: non cardiac chest pain, Gastroesophageal reflux disease, pulmonary nodule (a 5 mm nodule within the left upper lobe), Hypertension Condition: Good Discharge Goals: Decrease discomfort Activity: Resume your previous activity Non-emergency contact: Primary Care Provider Call non-emergency contact if: you have any medication questions Follow-up/Referrals: Glenny Norris DO [Primary Care Provider] - Diet: Heart Healthy Addtl Provider Instructions: Patient is discharged to home Patient was evaluated for chest pain Patient had CTA chest that did not find pulmonary embolism Found to have a pulmonary nodule (5 mm nodule within the left upper lobe) recommendations for solitary nodules are (Solitary nodule size: <6 mm in Low risk patients: no follow-up needed; in high risk patients: optional CT at 12 months) Patient has history of smoking in the past and may be considered high risk Patient to follow up with primary care doctor On cardiac evaluation -Troponins were negative, no acute events on telemetry -patient had nonischemic dobutamine stress echocardiogram with normal wall motion and EF of 60 to 65% Patient should take pantoprazole 40 mg twice a day for Gastroesophageal reflux disease Follow up with primary care doctor 11/07/2018 11:00 AM Provider Glenny Norris DO Department [facility] Prescriptions: New pantoprazole 40 mg Tablet,Delayed Release (Dr/Ec) 40 mg PO BID 30 Days Qty: 60 RF: 0 Continued lecithin 1,200 mg Capsule 1,200 mg PO DAILY RF: 0 calcium carbonate [Calcium 500] 500 mg calcium (1,250 mg) Tablet 500 mg PO DAILY RF: 0 losartan 25 mg tablet 25 mg PO QAM RF: 0 beta carotene 10,000 unit Capsule 10,000 unit PO DAILY RF: 0 cholecalciferol (vitamin D3) [Vitamin D3] 1,000 unit Capsule 1,000 unit PO DAILY RF: 0 alfalfa 250 mg Tablet 250 mg PO DAILY RF: 0 Discontinued omeprazole 20 mg capsule,delayed release(DR/EC) 20 mg PO DAILYBB RF: 0 Stand-Alone Forms: [facility] Discharge Orders: Discharge Order (Routine); Ordered 11/02/18 Ordered By: Jerson Sena Admission Data Admit Date/Time: 11/01/18 18:49 Attending Provider: Jerson Sena Admit Provider: Lydia Zhang Primary Care Provider: Glenny Norris Other Providers: Lydia Zhang Service: Telemetry Medical
== END 2018-11-02 15:38 | disposition home or self-care (01) ==
LOC: ED 13:03 → 2N 13:03